=== PATIENT | male | born 1970 | race Hispanic/Latino ===

== ENCOUNTER → 2024-10-23 | Day surgery (SDC) | payer OTHER ==
[~2024-10-23] MED LIST: BYSTOLIC5 MG PO; GLIMEPIRIDE2 MG PO; LIDOCAINE HCL 2% LOCAL INJ 5 ML SDV VIAL INJ ONE; LIPITOR10 MG PO; LOSARTAN-HCTZ1 EACH PO; METFORMIN HCL500 MG PO; PROPOFOL IV EMULSION 10 MG/ML 20 ML VIAL ONE
[2024-10-23] MEDS: LACTATED RINGER'S 1,000 ML ONE (10:06)
[2024-10-23 12:21] VITALS: TEMP 97.5
[2024-10-23 12:50] VITALS: BP 123/80; PULSE 86; RESP 14; O2SAT 97
== END | disposition home or self-care (01) ==
LOC: OR 08:57
PROVIDERS: ATTEND Internal Medicine Gastroenterology
DX: Z12.11 Encounter for screening for malignant neoplasm of colon (principal); R03.0 Elevated blood-pressure reading, without diagnosis of hypertension; K76.0 Fatty (change of) liver, not elsewhere classified; E11.9 Type 2 diabetes mellitus without complications; D12.3 Benign neoplasm of transverse colon; K64.8 Other hemorrhoids
CPT/HCPCS: 36415; 45384; 82948; 93005; J2003; J2704; J7121; 45378